=== PATIENT | female | born 1950 | race Caucasian/White ===

== ENCOUNTER → 2016-06-19 | Outpatient (CLI) | payer OTHER, MEDICARE | LOC: MMPC 10:00 | PROVIDERS: ATTEND Orthopaedic Surgery | DX: S83.31XD Tear of articular cartilage of right knee, current, subsequent encounter (principal); M67.461 Ganglion, right knee | CPT/HCPCS: 99213; G0463 ==

== ENCOUNTER → 2016-06-26 | Outpatient (CLI) | payer OTHER, MEDICARE | LOC: MMPC 09:00 | PROVIDERS: ATTEND Family Medicine | DX: J42 Unspecified chronic bronchitis (principal); E01.0 Iodine-deficiency related diffuse (endemic) goiter | CPT/HCPCS: 99213 ==

== ENCOUNTER → 2016-06-28 | Outpatient (CLI) | payer OTHER, MEDICARE ==
--- NOTE | 2016-06-28 09:57 | DI ---
THYROID ULTRASOUND, 06/28/2016 8:44 AM Clinical History: Thyromegaly. Previous Exam: None. Scans are performed through both lobes of the thyroid gland in multiple projections with the high res olution linear array probe. Color Doppler ultrasound is also performed. Both lobes of the thyroid gland are of normal size. The right and left lobes measure 15 x 14 x 36 mm, and 14 x 17 x 36 mm, in the AP, transverse, and longitudinal dimensions, respectively. There are 2 s mall 2 mm hypoechoic lesions in the left lobe of the thyroid consistent with small follicular cysts. There are also some similar size hypoechoic nodules in both lobes that are consistent with small hype rplastic nodules. Reading: Normal thyroid ultrasound. The thyroid gland is normal in size by ultrasound.
== END ==
LOC: US 08:40
PROVIDERS: ATTEND Family Medicine
DX: E01.0 Iodine-deficiency related diffuse (endemic) goiter (principal)
CPT/HCPCS: 76536

== ENCOUNTER → 2016-07-04 | Outpatient (CLI) | payer OTHER, MEDICARE | LOC: MMPC 11:11 | PROVIDERS: ATTEND Surgery | DX: F45.8 Other somatoform disorders (principal) | CPT/HCPCS: 99212; G0463 ==

== ENCOUNTER 2016-07-06 11:03 | Day surgery (SDC) | payer OTHER, MEDICARE ==
[~2016-07-06 11:03] MED LIST: Clindamycin 900mg (Premix) 50 ML IV ONE; LIDOCAINE W/ SODIUM BICARB 0.5 ML SYR ONE; Lactated Ringers 1,000 ML PRIMARY IV ONE
[2016-07-06] MEDS ORDERED: Ropivacaine 0.2% VIAL 20 ML ONE (11:45)
[2016-07-06] MEDS ORDERED: EPINEPHrine Inj (1:1,000) 30mg/30ml vial ONE (11:46)
[2016-07-06] MEDS ORDERED: IPRATROPIUM/ALBUTEROL SULFATE 3 ML NEB NEB ONE ×2 (11:58)
[2016-07-06] MEDS ORDERED: BETAMET ACET/BETAMET NA PH 6 MG/1 ML - 5 ML ONE (13:32)
[2016-07-06] MEDS ORDERED: KETOROLAC 30 MG/1 ML VIAL ONE (13:40)
[2016-07-06] MEDS ORDERED: SUGAMMADEX SODIUM 200 MG/2 ML VIAL IV ONE (13:43)
[2016-07-06] MEDS ORDERED: BISACODYL 10 MG SUPPOSITORY RECTAL PRN (13:57)
[2016-07-06] MEDS ORDERED: Ondansetron ODT Tab 8 MG TAB PO PRN (13:57)
[2016-07-06] MEDS ORDERED: MORPHINE SULFATE 2 MG/1 ML IVP PRN (13:57)
[2016-07-06] MEDS ORDERED: NORMAL SALINE 10 ML SYRINGE FLUSH IVP PRN (13:57)
[2016-07-06] MEDS ORDERED: diphenhydrAMINE 25 MG CAPSULE PO PRN (13:57)
[2016-07-06] MEDS ORDERED: MAG HYDROX/AL HYDROX/SIMETH 30 ML SUSP PO PRN (13:57)
[2016-07-06] MEDS ORDERED: ONDANSETRON 4 MG/2 ML VIAL IVP PRN (13:57)
[2016-07-06] MEDS ORDERED: CALCIUM CARBONATE 500 MG (TUMS) CHEWABLE TABLET PO PRN (13:57)
[2016-07-06] MEDS ORDERED: HYDROcodone-APAP 7.5 MG-325 MG TABLET PO PRN (13:57)
[2016-07-06] MEDS ORDERED: IBUPROFEN 400 MG TABLET PO PRN (13:57)
[2016-07-06] MEDS ORDERED: BISACODYL 5 MG TABLET PO PRN (13:57)
[2016-07-06] MEDS ORDERED: Prochlorperazine Tab 10 MG TAB PO PRN (13:57)
[2016-07-06] MEDS ORDERED: ACETAMINOPHEN 325 MG TABLET PO PRN (13:57)
[2016-07-06] MEDS ORDERED: Lactated Ringers 1,000 ML PRIMARY IV SCH (14:00)
[2016-07-06] MEDS ORDERED: HYDROcodone-APAP 7.5 MG-325 MG TABLET PO ONE (14:25)
[2016-07-06 14:35] VITALS: RESP 14
[2016-07-06 15:42] VITALS: TEMP 97.8
== END 2016-07-06 15:30 | disposition home or self-care (01) ==
LOC: SDSC 11:03
PROVIDERS: ATTEND Orthopaedic Surgery
DX: M25.561 Pain in right knee (principal); S83.241A Other tear of medial meniscus, current injury, right knee, initial encounter; S83.281A Other tear of lateral meniscus, current injury, right knee, initial encounter; M94.20 Chondromalacia, unspecified site; M25.861 Other specified joint disorders, right knee; M65.861 Other synovitis and tenosynovitis, right lower leg; E83.59 Other disorders of calcium metabolism
CPT/HCPCS: 27347; 29876; 29880; 94640; J0171; J0702; J1885; J2795; J7620; J3490; J7120

== ENCOUNTER 2016-07-10 08:01 | Day surgery (SDC) | payer OTHER, MEDICARE ==
[~2016-07-10 08:01] MED LIST changes: -Clindamycin 900mg (Premix) 50 ML IV ONE; +LIDOCAINE 2% VISCOUS(20 MG/1 ML) - 15 ML UD CUP PO ONE; -LIDOCAINE W/ SODIUM BICARB 0.5 ML SYR ONE; -Lactated Ringers 1,000 ML PRIMARY IV ONE
[2016-07-10] MEDS ORDERED: Lactated Ringers 1,000 ML PRIMARY IV ONE (08:36)
[2016-07-10] MEDS ORDERED: LIDOCAINE W/ SODIUM BICARB 0.5 ML SYR ONE (08:36)
--- NOTE | 2016-07-10 09:00 | GEN.OPNOTE ---
EGD Operative Note Surgery Date: 07/10/16 Preoperative Diagnosis: Globus sensation Postoperative Diagnosis: Globus sensation Procedure: Esophagogastroduodenoscopy Surgeon: Idris Galvez MD Anesthesia Provider: Gabriel Basurto CRNA Anesthesia Type: MAC Indications: Patient states that she feels there is something in the back of her throat. Will need to do an EGD could exclude any abnormal pathology Findings: Esophagus: Olympus video EGD scope inserted posterior pharynx under direct visualization. Guided into the esophagus under visualization. The esophagus was completely normal. No abnormal pathology seen. Patient did have thick secretions in the back of her throat. This may be what she is feeling. GE Junction : GE junction 42 cm from incisors Fundus : Scope retroflexed on itself revealing no abnormal pathology Body : Body of the stomach was completely normal. No masses tumors or ulcers Prepyloric : Prepyloric area was within normal limits no polyps tumors or cancers no evidence of ulcers. Small Intestine : First second third portion of duodenum within normal limits A lubricated flexible upper endoscope was inserted and passed through the esophagus and stomach into the duodenum.
[2016-07-10 09:20] VITALS: RESP 16; TEMP 97.4
== END 2016-07-10 09:30 | disposition home or self-care (01) ==
LOC: SDSC 08:01
PROVIDERS: ATTEND Surgery
DX: F45.8 Other somatoform disorders (principal)
CPT/HCPCS: 43235; J2704; J7120

== ENCOUNTER → 2016-07-20 | Outpatient (CLI) | payer OTHER, MEDICARE | LOC: MMPC 10:00 | PROVIDERS: ATTEND Physician Assistant | DX: S83.281A Other tear of lateral meniscus, current injury, right knee, initial encounter (principal); S83.241A Other tear of medial meniscus, current injury, right knee, initial encounter; M94.261 Chondromalacia, right knee ==

== ENCOUNTER → 2016-08-18 | Outpatient (CLI) | payer OTHER, MEDICARE | LOC: MMPC 10:00 | PROVIDERS: ATTEND Orthopaedic Surgery | DX: Z47.89 Encounter for other orthopedic aftercare (principal); S83.31XD Tear of articular cartilage of right knee, current, subsequent encounter; M67.461 Ganglion, right knee; S83.231D Complex tear of medial meniscus, current injury, right knee, subsequent encounter; S83.281D Other tear of lateral meniscus, current injury, right knee, subsequent encounter ==

== ENCOUNTER → 2016-09-08 | Outpatient (CLI) | payer OTHER, MEDICARE | LOC: MMPC 09:00 | PROVIDERS: ATTEND Family Medicine | DX: R05 Cough (principal); R04.2 Hemoptysis; F41.1 Generalized anxiety disorder | CPT/HCPCS: 99213; G0463 ==

== ENCOUNTER → 2016-09-20 | Outpatient (CLI) | payer OTHER, MEDICARE ==
[2016-09-20 08:08] LABS: BASOPHILS # (AUTO) 0.14 10*3/UL; BASOPHILS % (AUTO) 2.9 % (0-1); EOSINOPHILS # (AUTO) 0.07 10*3/UL; EOSINOPHILS % (AUTO) 1.4 % (0-8); HEMATOCRIT 38.1 % (37.0-47.0); HEMOGLOBIN 10.8 g/dL (12.0-16.0); LYMPHOCYTES # (AUTO) 1.17 10*3/uL; MEAN CORPUSCULAR HEMOGLOBIN 19.9 PG (27-31); MEAN CORPUSCULAR HGB CONC 28.3 g/dL (33-37); MEAN PLATELET VOLUME 10.6 FL (7.4-12.2); MONOCYTES # (AUTO) 0.66 10*3/UL (0.3-0.8); MONOCYTES % (AUTO) 13.6 % (5-15); NEUTROPHILS # (AUTO) 2.79 10*3/UL; NEUTROPHILS % (AUTO) 57.7 % (50-80); RED BLOOD COUNT 5.44 10^6/uL (4.20-5.40)
--- NOTE | 2016-09-20 08:32 | DI ---
CT HEAD SCAN WITHOUT IV CONTRAST, 09/20/2016 7:48 AM : Clinical History: Supraorbital headaches. Previous Exam: 05/14/2007. Scans are obtained from the foramen magnum to the vertex without IV contrast. The 4th, 3rd, and lateral ventricles are of normal size, shape, position, and contour for the patient 's age. There are no abnormal areas of increased or decreased density. There is mild age-appropriate cerebral atrophy. There are no extracerebral mantles or shift of the midline structures. Bone window evaluation is normal. The paranasal sinuses are normal. READIN. Normal non contrast CT head scan. 2. Mild age-appropriate cerebral atrophy.
[2016-09-20 08:48] LABS: PLATELET MORPHOLOGY COMMENT NORMAL MORPHOLOGY (NORM); WBC MORPHOLOGY COMMENT NORMAL MORPHOLOGY (NORM)
[2016-09-20 08:48] LABS: CALCIUM 9.2 mg/dL (8.7-10.7); CHOL/HDL RATIO 3.16 RATIO (0-4.0); LDL CHOLESTEROL,CALCULATED 86.8 mg/dL; SERUM ALBUMIN 4.1 g/dL (3.5-4.8)
[2016-09-20 08:50] LABS: HEMOGLOBIN A1C 5.49 % (4.2-6.0)
[2016-09-20 08:58] LABS: RBC MORPHOLOGY COMMENT SEE COMMENTS (NORM)
[2016-09-21 16:06] LABS: BILIRUBIN,URINE NEGATIVE (NEG); CLARITY,URINE CLEAR (CLEAR); COLOR,URINE YELLOW; GLUCOSE, URINE (UA) NEGATIVE (NEG); NITRATE,URINE NEGATIVE (NEG); OCCULT BLOOD,URINE NEGATIVE (NEG); PH,URINE 5.5 (5.0-8.5); PROTEIN,URINE NEGATIVE (NEG); UROBILINOGEN,URINE 0.2 mg/dL (0.2)
[2016-09-21 16:14] LABS: SQUAMOUS EPITHELIAL CELL,UR RARE; URINE SAMPLE TYPE CLEAN CATCH URINE
--- NOTE | 2016-09-22 18:25 | DI ---
CT CHEST SCAN WITHOUT IV CONTRAST, 09/20/2016 7:48 AM : Clinical History: Hemoptysis. Previous Exam: 12/13/2015. Scans are performed from the base of the neck to the lower lung bases without IV contrast. Sagittal a nd coronal images using non MIPS and MIPS technique are generated. The base of the neck and thoracic inlet are normal. There are no abnormal axillary, supraclavicular, mediastinal, or hilar nodes. The heart is normal and there is only a small calcification in the proxi mal LAD. There is no acute infiltrate or effusion. In the superior segment of the left lower lobe, th ere is a noncalcified nodule that measures approximately 8 x 8 x 10 mm. Review of the previous CT sca n shows that only in retrospect is there are an abnormality noted. On the previous study, this nodule measures in the range of 3 mm in maximum dimension. This would indicate the lesion has almost triple d in size in a span of 9 months. In the left lower lobe there are 3 new small nodules in the range of 2-3 mm located in the posterior sulcus of the left lower lobe that are adjacent to each other. No di screte abnormality is identified that would explain the patient's hemoptysis. Both adrenal glands, th e spleen, and the visualized portions of the liver and pancreas are normal. READIN. There is no obvious lesion present that would explain the patient's complaint of hemoptysis. Ther e is a noncalcified nodule in the superior segment of the right lower lobe that measures 8 x 8 x 10 m m. On the previous study, in retrospect, there was a nodular density that measures approximately 3 mm in diameter. This would indicate that the lesion has virtually tripled in size in a span of 9 months . This lesion would be barely a size that would be detectable by a CT PET scan. Therefore, consider m onitoring this patient closely with a followup CT scan in 3 months with testing for TB and other gran ulomatous diseases as well as sputum for cytology. Because there are also 3 new small 3 mm nodules in proximity to each other located in the left lower lobe in the posterior sulcus, metastatic disease m ust also be considered. Workup consisting of a CT scan of the abdomen and pelvis with oral and IV con trast as well as a bilateral diagnostic mammogram is recommended even though the patient had a screen ing mammogram in May of 2016. 2. The remainder of the scans is normal.
== END ==
LOC: CT 07:39
PROVIDERS: ATTEND Family Medicine
DX: D50.9 Iron deficiency anemia, unspecified (principal); R04.2 Hemoptysis; R51 Headache; I10 Essential (primary) hypertension; I25.10 Atherosclerotic heart disease of native coronary artery without angina pectoris; R31.9 Hematuria, unspecified; F17.200 Nicotine dependence, unspecified, uncomplicated; Z79.899 Other long term (current) drug therapy
CPT/HCPCS: 36415; 70450; 71250; 80053; 80061; 81001; 82272; 83036; 84443; 85025; 87088

== ENCOUNTER → 2016-09-26 | Outpatient (CLI) | payer OTHER, MEDICARE ==
[2016-09-29 07:25] LABS: QUANTIFERON-TB GOLD RESULT Negative (Negative)
== END ==
LOC: LAB 07:51
PROVIDERS: ATTEND Family Medicine
DX: R91.1 Solitary pulmonary nodule (principal)
CPT/HCPCS: 36415; 86480

== ENCOUNTER → 2016-10-02 | Outpatient (CLI) | payer OTHER, MEDICARE | LOC: MMPC 09:00 | PROVIDERS: ATTEND Family Medicine | DX: J42 Unspecified chronic bronchitis (principal); I10 Essential (primary) hypertension; I25.10 Atherosclerotic heart disease of native coronary artery without angina pectoris; Z87.09 Personal history of other diseases of the respiratory system; Z72.0 Tobacco use | CPT/HCPCS: 99213; G0463 ==